=== PATIENT | female | born 1960 | race Hispanic/Latino ===

== ENCOUNTER 2016-12-25 14:09 | Emergency (ER) | payer MEDICARE ==
[~2016-12-25] VITALS: Ht 149.9 cm; Wt 81.0 kg
[2016-12-25] MEDS ORDERED: ASPIRIN EC81 MG PO (14:53)
[2016-12-25] MEDS ORDERED: ATORVASTATIN CA10 MG PO (14:54)
[2016-12-25] MEDS ORDERED: LIORESAL10 MG/TA1 PO (14:55)
[2016-12-25] MEDS ORDERED: GABAPENTIN100 MG PO (14:55)
[2016-12-25] MEDS ORDERED: LEVOTHYROXIN125 MCG PO (14:55)
[2016-12-25] MEDS ORDERED: MAGNESIUM-OX400 MG PO (14:56)
[2016-12-25 14:57] LABS: HEMATOCRIT 38.9 % (37.0-47.0); HEMOGLOBIN 12.3 g/dl (12.0-16.0); IMMATURE GRANULOCYTES 0.4 % (0.0-1.0); MEAN CELL VOLUME 82.8 fL CALC (80.0-100.0); MEAN CORPUSCULAR HGB 26.2 pG CALC (26.0-32.0); MEAN CORPUSCULAR HGB CONC 31.6 g/L CALC (32.0-36.0); NEUT# 6.86 thou/uL (2.00-7.15); RED BLOOD COUNT 4.7 mill/uL (4.20-5.60); RED CELL DISTRI WIDTH 15.8 % (11.5-15.5)
[2016-12-25] MEDS ORDERED: MELOXICAM7.5 MG PO (14:58)
[2016-12-25] MEDS ORDERED: METFORMIN500 MG PO (14:59)
[2016-12-25] MEDS ORDERED: OXYCODONE HCL5 MG PO (15:00)
[2016-12-25] MEDS ORDERED: PROTONIX40 M2 PO (15:01)
[2016-12-25] MEDS ORDERED: SUCRALFATE1 GM PO (15:01)
[2016-12-25] MEDS ORDERED: VALIUM2 MG PO (15:02)
[2016-12-25] MEDS ORDERED: VENLAFAXINE HCL75 M1 PO (15:03)
[2016-12-25 15:43] LABS: ALBUMIN 3.9 g/dL (3.2-5.0); ALKALINE PHOSPHATASE 110 u/l (38-126); AMYLASE 49 u/l (30-110); ANION GAP 16 (6-22 (CALC)); BILIRUBIN, TOTAL 0.4 mg/dL (0.0-1.4); BUN 10 mg/dL (7-17); BUN/CREATININE RATIO 21 (12-20 (CALC)); CARBON DIOXIDE 27 mmol/l (22-30); CHLORIDE 106 mmol/l (95-108); CREATININE 0.5 mg/dL (0.5-1.0); GFR > 60 ML/MIN (>=60 (CALC)); GFR FOR AFR.AMER. > 60 ML/MIN (>=60 (CALC)); GLUCOSE 117 mg/dL (65-105); LIPASE 118 u/l (23-300); POTASSIUM 4.2 mmol/l (3.5-5.1); SGOT/AST 33 u/l (14-36); SGPT/ALT 44 u/l (9-52); SODIUM 144 mmol/l (137-146); TOTAL PROTEIN 7.2 g/dL (6.3-8.2)
[2016-12-25 15:54] LABS: MYOGLOBIN 27 ng/mL (0 - 62)
[2016-12-25 16:06] LABS: URINE BILIRUBIN - DIPSTICK NEGATIVE (NEGATIVE); URINE BLOOD DIPSTICK TRACE-LYSED (NEGATIVE); URINE COLOR YELLOW; URINE GLUCOSE - DIPSTICK NEGATIVE (NEGATIVE); URINE KETONE TRACE mg/dL (NEGATIVE); URINE LEUK ESTERASE LARGE (NEGATIVE); URINE NITRITE - DIPSTICK POSITIVE (Negative); URINE PH 7.5 (4.5-8.0); URINE PROTEIN - DIPSTICK TRACE mg/dL (NEG-TRACE); URINE SPECIFIC GRAVITY 1.025; URINE UROBILINOGEN - DIPSTICK 0.2 E.U./dL (0.2)
[2016-12-25 16:08] LABS: URINE CLARITY CLOUDY
[2016-12-25 16:15] LABS: URINE BACTERIA MANY hpf; URINE SQUAMOUS EPITHELIAL CELL FEW EPI/hpf (0-FEW); URINE WBC TNTC WBC/hpf (0-5)
[2016-12-25] MEDS ORDERED: CIPROFLOXACN500 MG PO (17:34)
[2016-12-25 17:39] VITALS: BP 150/72
== END 2016-12-25 18:27 | disposition home or self-care (01) ==
LOC: ED 14:09
PROVIDERS: Emergency Medicine
PROC: 0T9B70Z Drainage of Bladder with Drainage Device, Via Natural or Artificial Opening (ICD-10-PCS; principal; 2016-12-25)
DX: N39.0 Urinary tract infection, site not specified (principal); B96.20 Unspecified Escherichia coli [E. coli] as the cause of diseases classified elsewhere; Z16.12 Extended spectrum beta lactamase (ESBL) resistance; R10.13 Epigastric pain; K59.00 Constipation, unspecified; K76.0 Fatty (change of) liver, not elsewhere classified; K21.9 Gastro-esophageal reflux disease without esophagitis
CPT/HCPCS: Q9967

== ENCOUNTER 2017-05-12 12:38 | Emergency (ER) | payer MEDICARE ==
[~2017-05-12] VITALS: Ht 149.9 cm; Wt 79.0 kg
[~2017-05-12 12:38] MED LIST: ASPIRIN EC81 MG PO; ATORVASTATIN CA10 MG PO; CIPROFLOXACN500 MG PO; GABAPENTIN100 MG PO; LEVOTHYROXIN125 MCG PO; LIORESAL10 MG/TA1 PO; MAGNESIUM-OX400 MG PO; MELOXICAM7.5 MG PO; METFORMIN500 MG PO; OXYCODONE HCL5 MG PO; PROTONIX40 M2 PO; SUCRALFATE1 GM PO; VALIUM2 MG PO; VENLAFAXINE HCL75 M1 PO
[2017-05-12] MEDS ORDERED: ZPAK PO (14:11)
[2017-05-12 14:17] VITALS: BP 128/78
== END 2017-05-12 16:28 | disposition home or self-care (01) ==
LOC: ED 12:38
DX: J44.9 Chronic obstructive pulmonary disease, unspecified (principal); F41.9 Anxiety disorder, unspecified; K21.9 Gastro-esophageal reflux disease without esophagitis; E11.9 Type 2 diabetes mellitus without complications; G82.20 Paraplegia, unspecified